=== PATIENT | female | born 1955 | race Caucasian/White ===

== ENCOUNTER 2019-08-04 09:41 | Outpatient (REF) | payer OTHER, SELFPAY ==
[2019-08-04 21:03] LABS: Anion Gap 6.9 mmol/L (3-11); BUN 33 mg/dL (7-18); CO2 29.1 mmol/L (21.0-32.0); CREATININE 0.86 mg/dL (0.55-1.02); Calculated LDL 178 mg/dL; Chloride 105 mmol/L (98-107); Cholesterol 245 mg/dL (50-200); Glucose 104 mg/dL (70-100); HDL Cholesterol 49 mg/dL (40-60); Potassium 4.5 mmol/L (3.5-5.1); Sodium 141 mmol/L (136-145); Triglyceride 94 mg/dL (30-150)
== END 2019-08-04 10:01 ==
LOC: NCHCN 09:41
PROVIDERS: PCP Internal Medicine; Visit Provider Internal Medicine
DX: R03.0 Elevated blood-pressure reading, without diagnosis of hypertension (principal); Z13.220 Encounter for screening for lipoid disorders
CPT/HCPCS: 80048; 80061

== ENCOUNTER 2019-09-17 09:53 | Outpatient (REF) | payer OTHER, SELFPAY ==
--- NOTE | 2019-09-17 08:50 | PAPFT_PTH ---
[facility] Al [id number] AGE/SX: 63/F ROOM: RE09/17/[address]: Maribel Cordoba : 1955 BED: DIS: 09/17/2019 SPEC #: [id number] RECD: 09/18/19 13:02 STATUS: ANDREA FRANCOIS #: [id number] LAURA: 09/17/19 08:[address]: Maribel Cordoba DEPT: [facility] Cytology RECD BY: Mahogany Resendez Tissues: 1 - CX/ENDOCX FOR PAP SMEARS Procedures: PAP THIN PREP/[facility] Screening HPV DNA PROBE Comments: [id number]
== END 2019-09-17 10:13 ==
LOC: NCHCN 09:53
PROVIDERS: PCP Internal Medicine; Visit Provider Internal Medicine
DX: Z12.4 Encounter for screening for malignant neoplasm of cervix (principal); Z11.51 Encounter for screening for human papillomavirus (HPV)
CPT/HCPCS: 88142; 87624

== ENCOUNTER 2020-04-19 12:22 | Outpatient (REF) | payer OTHER, SELFPAY ==
[2020-04-19 20:21] LABS: Anion Gap 7.6 mmol/L (3-11); BUN 20 mg/dL (7-18); CO2 26.4 mmol/L (21.0-32.0); CREATININE 0.76 mg/dL (0.55-1.02); Calcium 8.8 mg/dL (8.5-10.1); Calculated LDL 136 mg/dL (<100); Chloride 108 mmol/L (98-107); Cholesterol 200 mg/dL (<200); Glucose 101 mg/dL (74-106); HDL Cholesterol 48 mg/dL (40-60); Potassium 4.2 mmol/L (3.5-5.1); Sodium 142 mmol/L (136-145); Triglyceride 81 mg/dL (<150)
== END 2020-04-19 12:42 ==
LOC: NCHCN 12:22
PROVIDERS: PCP Internal Medicine; Visit Provider Internal Medicine
DX: E78.5 Hyperlipidemia, unspecified (principal); R73.03 Prediabetes
CPT/HCPCS: 80048; 80061

== ENCOUNTER 2021-08-24 15:38 | Outpatient (REF) | payer SELFPAY ==
[2021-08-24 16:00] LABS: Anion Gap 7.5 mmol/L (3-11); BUN 25 mg/dL (7-18); CO2 28.5 mmol/L (21.0-32.0); CREATININE 0.9 mg/dL (0.55-1.02); Calcium 9.1 mg/dL (8.5-10.1); Calculated LDL 190 mg/dL (<100); Chloride 104 mmol/L (98-107); Cholesterol 274 mg/dL (<200); Glucose 94 mg/dL (74-106); HDL Cholesterol 49 mg/dL (40-60); Potassium 4.3 mmol/L (3.5-5.1); Sodium 140 mmol/L (136-145); Triglyceride 179 mg/dL (<150)
== END 2021-08-24 15:39 | disposition home or self-care (01) ==
LOC: NCHCN 15:38
PROVIDERS: PCP Internal Medicine; Visit Provider Internal Medicine
DX: E78.5 Hyperlipidemia, unspecified (principal); R73.03 Prediabetes; Z00.00 Encounter for general adult medical examination without abnormal findings
CPT/HCPCS: 80048; 80061

== ENCOUNTER 2022-03-06 09:01 | Outpatient (REF) | payer MEDICARE, SELFPAY ==
[2022-03-06 16:10] LABS: Calculated LDL 166 mg/dL (<100); Cholesterol 237 mg/dL (<200); HDL Cholesterol 49 mg/dL (40-60); TSH (W/Ref FT4) 3.08 uIU/mL (0.36-3.74); Triglyceride 112 mg/dL (<150); Vitamin B12 405 pg/mL (193-986)
[2022-03-06 17:06] LABS: Hemoglobin A1C 5.8 % (<5.7)
== END 2022-03-06 09:02 | disposition home or self-care (01) ==
LOC: NCHCN 09:01
PROVIDERS: PCP Internal Medicine; Visit Provider Internal Medicine
DX: E78.5 Hyperlipidemia, unspecified (principal); R73.03 Prediabetes; G62.9 Polyneuropathy, unspecified
CPT/HCPCS: 80061; 82607; 83036; 84443

== ENCOUNTER 2022-10-12 12:11 | Outpatient (REF) | payer MEDICARE, SELFPAY ==
[2022-10-12 14:16] LABS: Hemoglobin A1C 5.8 % (<5.7)
[2022-10-12 14:18] LABS: Calculated LDL 180 mg/dL (<100); Cholesterol 248 mg/dL (<200); HDL Cholesterol 49 mg/dL (40-60); Triglyceride 96 mg/dL (<150)
== END 2022-10-12 12:12 | disposition home or self-care (01) ==
LOC: NCHCN 12:11
PROVIDERS: PCP Internal Medicine; Visit Provider Internal Medicine
DX: R73.03 Prediabetes (principal); E78.5 Hyperlipidemia, unspecified
CPT/HCPCS: 80061; 83036

== ENCOUNTER 2023-07-19 13:13 | Outpatient (REF) | payer MEDICARE, SELFPAY ==
[2023-07-19 16:09] LABS: ALT 34 U/L (14-59); AST 29 U/L (15-37); Albumin 3.7 g/dL (3.4-5.0); Alkaline Phosphatase 69 U/L (46-116); Anion Gap 6.2 mmol/L (3-11); BUN 23 mg/dL (7-18); Bilirubin, Total 0.4 mg/dL (0.2-1.0); CO2 28.8 mmol/L (21.0-32.0); CREATININE 0.9 mg/dL (0.55-1.02); Calcium 9.1 mg/dL (8.5-10.1); Calculated LDL 163 mg/dL (<100); Chloride 106 mmol/L (98-107); Cholesterol 231 mg/dL (<200); Glucose 96 mg/dL (74-106); HDL Cholesterol 50 mg/dL (40-60); Potassium 4.2 mmol/L (3.5-5.1); Sodium 141 mmol/L (136-145); Total Protein 7.3 g/dL (6.4-8.2); Triglyceride 90 mg/dL (<150)
[2023-07-19 16:37] LABS: Hemoglobin A1C 5.6 % (<5.7)
== END 2023-07-19 13:14 | disposition home or self-care (01) ==
LOC: NCHCN 13:13
PROVIDERS: PCP Internal Medicine; Visit Provider Internal Medicine
DX: R73.03 Prediabetes (principal); E78.5 Hyperlipidemia, unspecified; R03.0 Elevated blood-pressure reading, without diagnosis of hypertension
CPT/HCPCS: 80053; 80061; 83036

== ENCOUNTER 2024-02-24 14:45 | Outpatient (REF) | payer MEDICARE, SELFPAY ==
[2024-02-24 14:55] LABS: Hemoglobin A1C 5.8 % (<5.7)
[2024-02-24 15:20] LABS: Calculated LDL 189 mg/dL (<100); Cholesterol 274 mg/dL (<200); HDL Cholesterol 54 mg/dL (40-60); Triglyceride 155 mg/dL (<150)
== END 2024-02-24 14:46 | disposition home or self-care (01) ==
LOC: NCHCN 14:45
PROVIDERS: PCP Internal Medicine; Visit Provider Internal Medicine
DX: Z00.00 Encounter for general adult medical examination without abnormal findings (principal); R73.03 Prediabetes
CPT/HCPCS: 80061; 83036

== ENCOUNTER 2025-02-22 11:34 | Outpatient (REF) | payer MEDICARE, SELFPAY ==
[2025-02-22 16:09] LABS: HCT 41.5 % (36.0-46.0); HGB 12.9 g/dL (11.2-15.7); MCH 29.1 pg (27.0-33.0); MCHC 31.1 % (32.0-36.0); MCV 94 fL (80-95); Platelet Count 195 10^3/uL (130-400); RBC 4.43 10^6/uL (3.93-5.22); RDW 12.6 % (11.7-14.6); RDW-SD 43.4 fL; WBC 5.15 10^3/uL (4.4-10.8)
[2025-02-22 16:47] LABS: Hemoglobin A1C 5.7 % (<5.7)
[2025-02-22 17:31] LABS: ALT 30 U/L (14-59); AST 25 U/L (15-37); Albumin 3.9 g/dL (3.4-5.0); Alkaline Phosphatase 70 U/L (46-116); Anion Gap 11.3 mmol/L (3-11); BUN 19 mg/dL (7-18); Bilirubin, Total 0.4 mg/dL (0.2-1.0); CO2 26.7 mmol/L (21.0-32.0); CREATININE 0.8 mg/dL (0.55-1.02); Calcium 9.3 mg/dL (8.5-10.1); Calculated LDL 127 mg/dL (<100); Chloride 107 mmol/L (98-107); Cholesterol 207 mg/dL (<200); Estimated GFR 78.72 (mL/min/1.73m2); Glucose 94 mg/dL (74-106); HDL Cholesterol 53 mg/dL (>or=50); Potassium 4.7 mmol/L (3.5-5.1); Sodium 145 mmol/L (136-145); Total Protein 7.2 g/dL (6.4-8.2); Triglyceride 139 mg/dL (<150); Vitamin D 25 Total 34 ng/mL (30-100)
== END 2025-02-22 11:35 | disposition home or self-care (01) ==
LOC: NCHCN 11:34
PROVIDERS: PCP Internal Medicine; Visit Provider Internal Medicine
DX: M85.80 Other specified disorders of bone density and structure, unspecified site (principal); R73.03 Prediabetes
CPT/HCPCS: 80053; 80061; 82306; 85027; 83036

== ENCOUNTER 2025-06-01 16:22 | Outpatient (REF) | payer MEDICARE, SELFPAY ==
[2025-06-01 18:35] LABS: ALT 27 U/L (14-59); AST 25 U/L (15-37); Albumin 4.0 g/dL (3.4-5.0); Alkaline Phosphatase 59 U/L (46-116); Bilirubin, Direct 0.1 mg/dL (0.0-0.2); Bilirubin, Total 0.3 mg/dL (0.2-1.0); Total Protein 7.3 g/dL (6.4-8.2)
== END 2025-06-01 16:23 | disposition home or self-care (01) ==
LOC: NCHCN 16:22
PROVIDERS: PCP Internal Medicine; Visit Provider Internal Medicine
DX: B35.1 Tinea unguium (principal)
CPT/HCPCS: 80076